=== PATIENT | female | born 1965 | race Caucasian/White ===

== ENCOUNTER → 2016-12-28 | Outpatient (CLI) | payer OTHER ==
--- NOTE | 2016-12-28 09:50 | US ---
Pelvic Ultrasound (Transabdominal and Endovaginal) with color flow and spectral Doppler History: Postmenopausal bleeding. Findings: The pelvis was first examined through a moderately distended bladder from TRANSABDOMINAL approach. UTERUS: Size: 9.6 x 3.8 x 5.9 cm in longitudinal, AP, and transverse projections. Orientation: Anteflexed and slightly retroverted. Uterine Masses: None seen. Endometrium: Grossly normal in appearance. ADNEXA: No adnexal masses. Small normal-appearing ovary is seen on each side. The right ovary measur es 2.4 x 1 x 2.2 cm. From transabdominal approach the left ovary is also normal in appearance measuri ng about 1.9 x 1.2 x 2.1 cm. Color flow Doppler was performed and does demonstrate flow although slig htly diminished probably related to positioning of the ovary. The pelvis was then evaluated from ENDOVAGINAL approach after the bladder was emptied to better evalu ate the uterus and adnexa. UTERUS: Orientation: Anteverted and slightly retroflexed. Masses: None. Endometrium: Normal measuring 6-7 mm in thickness. However, the margins of the endometrial stripe ar e incompletely visualized. Rule out mild adenomyosis. ADNEXA: Small follicles are seen associated with the left ovary. The right ovary is not well delineat ed from endovaginal approach. Right ovary: Not visualized from endovaginal approach Left ovary size: 2.3 x 1.1 x 2.3 cm Color flow and spectral Doppler: Normal color flow imaging with normal Doppler waveform on the left. Free fluid: None. Other findings: None. Impression: 1. No evidence of myometrial masses. 2. The margins of the endometrial stripe are poorly defined within the uterus. Some of this could be positional versus possibility of underlying mild adenomyosis. 3. Ovaries appear to be normal.
== END ==
LOC: BRMIMAGING 08:40
PROVIDERS: ATTEND Physician Assistant Medical
DX: N95.0 Postmenopausal bleeding (principal)
CPT/HCPCS: 76856-PO